=== PATIENT | male | born 1970 | race Caucasian/White ===

== ENCOUNTER 2020-01-27 07:25 | Day surgery (SDC) | payer BC ==
[~2020-01-27] VITALS: Ht 198.1 cm; Wt 99.8 kg
--- NOTE | 2020-01-27 09:47 | NUR ---
01/27/20 0947 Mariella Green 0900 PT ARRIVED IN PACU WIDE AWAKE WITH NO C/O'S. ABD SOFT. 0910 DR AT BEDSIDE TALKING WITH PT. 09 SITTING AT SIDE OF BED SIPPING ON WATER. C/O BLOATING. ENCOURAGED TO PASS FLATUS. 0930 DC INSTRUCTIONS GIVEN TO PT/GIRLFRIEND. LEFT VIA W/C TO CAR. C/O BLOATING AND NAUSEA AT CAR. RN WAITED WITH PT TILL FEELING BETTER AND OK TO LEAVE. NAUSEA PASSED AFTER 5 MINUTES AND C/O BLOATING. ENCOURAGED TO PASS FLATUS, WALK WHEN HOME AND MOVE POSITIONS TO GET RID OF AIR. 0935 LEFT IN CAR WITH GIRLFRIEND.
--- NOTE | 2020-01-28 18:28 | OR ---
[facility] [address] [place], [place] [address] Signed DATE OF OPERATION: 01/27/2020 SURGEON: Nancy Schmitz MD PREOPERATIVE DIAGNOSES: 1. Colon screening. 2. Family history of colon cancer (mother age 60). POSTOPERATIVE DIAGNOSIS: Polyp at 70 cm (excised). PROCEDURE: Total colonoscopy to cecum with cold snare polypectomy x1. ANESTHESIA: Intravenous sedation, fentanyl 125 mcg and Versed 8 mg. INDICATION: This 49-year-old white man is a patient of Dr. Vázquez and is known to have family history of colon cancer in his mother at age 60. He is symptom free, having no bleeding diarrhea or constipation. He is here to undergo colonoscopy, understands the risks of bleeding, infection, and perforation. FINDINGS: The prep was excellent. Complete colonoscopy was undertaken to the cecum without question. The ileocecal valve and appendiceal orifice were normal. There was a small polyp at 70 cm, which was excised with cold snare technique and was completely excised. There were no other findings of concern. DESCRIPTION OF PROCEDURE: The patient was brought to the endoscopy suite and placed in lateral decubitus position, given intravenous sedation to the point of slurred speech and nystagmus with full cardiopulmonary monitoring. Digital rectal examination was normal. An Olympus video colonoscope was passed in the rectum and manipulated throughout the colon ultimately intubating the cecum itself. The ileocecal valve and appendiceal orifice were normal. Additional sedation was given as needed. Once the cecum was completely evaluated, the scope was carefully withdrawn and examination throughout showed no sign of abnormality until approximately 70 cm from the anal verge where a small sessile polyp was noted, most likely was adenomatous. Cold snare polypectomy Electronically Signed By: NANCY SCHMITZ MD 01/28/20 1828 PATIENT NAME: ALVIN NICOLE OPERATIVE REPORT DATE OF : 68 REPORT #: [id number] PHYSICIAN: NANCY SHCMITZ MD PCP: SHAI VÁZQUEZ MD REPORT IS CONFIDENTIAL AND NOT TO BE RELEASED WITHOUT AUTHORIZATION [facility] [address] [place], [place] [address] Signed technique was undertaken to excise it fully. The retrieved specimen was smaller than expected. Additional biopsies were taken of the site. Complete ablation of the lesion was noted. Further withdrawal of scope showed no other abnormalities. Retroflexed view was normal. Scope was removed. The patient was taken to the recovery room in good condition. CONCLUDING DIAGNOSIS: Small polyp at 70 cm. PLAN: Recommend repeat colonoscopy in 3 years, sooner if clinically indicated. He will return to the ongoing care of Dr. Vázquez. MD ROJELIO Fonseca/GAGE /[id number] cc: Shai Vázquez MD Copies: SHAI VÁZQUEZ MD ~ Electronically Signed By: NANCY SCHMITZ MD 01/28/20 1828 PATIENT NAME: ALVIN NICOLE OPERATIVE REPORT DATE OF : 68 REPORT #: [id number] PHYSICIAN: NANCY SCHMITZ MD PCP: SHAI VÁZQUEZ MD REPORT IS CONFIDENTIAL AND NOT TO BE RELEASED WITHOUT AUTHORIZATION
--- NOTE | 2020-01-29 12:30 | PATH ---
[facility] [address] [place], [place] [address] Signed SPECIMEN(S): A DESCENDING POLYP SPECIMEN SOURCE: A. DESCENDING POLYP CLINICAL HISTORY: Family history of colon cancer. Polyp x1. MICROSCOPIC DESCRIPTION: Histologic sections of all submitted blocks are examined by light microscopy. These findings, together with the gross examination, support the pathologic diagnosis. FINAL PATHOLOGIC DIAGNOSIS: Colon, descending, polyp, polypectomy: - Fragments of tubular adenoma. - Negative for high-grade dysplasia or malignancy. NAL:cml:C2NR GROSS DESCRIPTION: The specimen, labeled "Alvin Peck, #1," and designated on the requisition "descending polyp 70 cm," is received in formalin and consists of four sanchez soft tissue fragment(s) that measure 0.2-0.4 cm in greatest dimension. The specimen is entirely submitted in cassette (A1). FB (under the direct supervision of a pathologist) The Gross Description was prepared using a voice recognition system. The report was reviewed for accuracy; however, sound-alike word errors, addition and/or deletions may occur. If there is any question about this report, please contact Client Services. PERFORMING LABORATORY: The technical component was performed by [facility], [address] [place] [id number] (Inventory Worker: Marcella Covarrubias MD; CLIA# [id number]). [facility] [address] [address] (CLIA# [id number]). Diagnostician: Darcy Peterson MD Pathologist Electronically Signed 01/29/2020 PATIENT NAME: ALVIN PECK PATHOLOGY DATE OF : 68 REPORT #: [id number] PHYSICIAN: [facility] PATHOLOGY PCP: SHAI VÁZQUEZ MD REPORT IS CONFIDENTIAL AND NOT TO BE RELEASED WITHOUT AUTHORIZATION [address] [address] Signed Copies: ~ PATIENT NAME: ALVIN PECK PATHOLOGY DATE OF : 68 REPORT #: [id number] PHYSICIAN: RAMIRO PATHOLOGY PCP: SHAI VÁZQUEZ MD REPORT IS CONFIDENTIAL AND NOT TO BE RELEASED WITHOUT AUTHORIZATION
== END 2020-01-27 09:30 | disposition home or self-care (01) ==
LOC: OPS 07:25 → DS 07:25 → OPS 08:30 → DS 08:30 → OPS 09:30
PROVIDERS: Surgery
PROC: 0DBM8ZZ Excision of Descending Colon, Via Natural or Artificial Opening Endoscopic (ICD-10-PCS; principal; 2020-01-27 08:30)
DX: Z12.11 Encounter for screening for malignant neoplasm of colon (principal); D12.4 Benign neoplasm of descending colon; Z80.0 Family history of malignant neoplasm of digestive organs
CPT/HCPCS: 99153; G0500; J2250; J3010; J7121